=== PATIENT | female | born 1965 | race American Indian/Alaskan Native ===

== ENCOUNTER 2016-11-28 11:00 | Emergency (ER) | payer MEDICAID ==
[2016-11-28] MEDS ORDERED: HYDROmorphone 0.5 MG/0.5 ML Syringe IM ONE (13:09)
[2016-11-28] MEDS ORDERED: HYDROmorphone 0.5 MG/0.5 ML Syringe ONE (13:13)
[2016-11-28 14:08] VITALS: BP 116/72
--- NOTE | 2016-11-28 14:39 | EDM.PDOC ---
ED HPI GENERAL MEDICAL PROBLEM - General Chief Complaint: Neurological Problem Stated Complaint: MEDICAL [facility] Time Seen by Provider: 11/28/16 11:36 Source of Information: Reports: Patient History Limitations: Reports: No Limitations - History of Present Illness INITIAL COMMENTS - FREE TEXT/NARRATIVE: History of present illness: [This is a 51 of female that had a 5 minute general tonic-clonic seizures this morning. She had one seizure in the past that they thought was related to tramadol. She's never been formally diagnosed with a seizure disorder. Her witnessed this event. She slumped over a laundry basket and then fell to the floor and convulsive for about 5 minutes. She bit her tongue and was bleeding out of her mouth. She presents by ambulance alert and oriented and appears to have gone beyond the postictal period. ] Review of systems: As per history of present illness and below otherwise all systems reviewed and negative. Past medical history: As per history of present illness and as reviewed below otherwise noncontributory. Surgical history: As per history of present illness and as reviewed below otherwise noncontributory. Social history: No reported history of drug or alcohol abuse. Family history: As per history of present illness and as reviewed below otherwise noncontributory. Physical exam: HEENT: Atraumatic, normocephalic, pupils reactive, negative for conjunctival pallor or scleral icterus, mucous membranes moist, she has a bite giovanny on the left side of her tongue. throat clear, neck supple, nontender, trachea midline. Lungs: Clear to auscultation, breath sounds equal bilaterally, chest nontender. Heart: S1S2, regular, negative for clicks, rubs, or JVD. Abdomen: Soft, nondistended, nontender. Negative for masses or hepatosplenomegaly. Negative for costovertebral tenderness. Pelvis: Stable nontender. Genitourinary: Deferred. Rectal: Deferred. Extremities: Atraumatic, negative for cords or calf pain. Neurovascular unremarkable. Neuro: Awake, alert, oriented. Cranial nerves II through XII unremarkable. Cerebellum unremarkable. Motor and sensory unremarkable throughout. Exam nonfocal. Diagnostics: [Head CT is negative labs are unremarkable.] Therapeutics: [] Impression: [Seizure] Plan: [In reviewing her medications she is on 3 medications that could cause seizures. These are Wellbutrin Cymbalta and duloxetine. I'm recommending she followup with the nurse practitioner that prescribes these or her primary care doctor and discuss with them whether or not she needs these medications and whether or not they think that that could have caused her to have a seizure. It could be that this would be difficult for them to determine and that a neuro consult would be in order. Either these medications caused this seizure or she has an underlying epileptic disorder.] Definitive disposition and diagnosis as appropriate pending reevaluation and review of above. - Related Data Allergies Allergy/AdvReac Type Severity Reaction Status Date / Time codeine Allergy Unknown Hallucinati Verified 04/30/16 08:08 ons Home Meds: Home Meds Omeprazole 20 mg PO DAILY 03/21/13 [History] Ferrous Sulfate [Iron] 325 mg PO DAILY 02/06/15 [History] Folic Acid 1 mg PO DAILY 02/06/15 [History] ARIPiprazole [Abilify] 30 mg PO DAILY 05/31/15 [History] Amitriptyline [Elavil] 200 mg PO BEDTIME 05/31/15 [History] DULoxetine [Cymbalta] 120 mg PO DAILY 05/31/15 [History] Lisinopril/Hydrochlorothiazide [Lisinopril-Hctz 10-12.5 mg Tab] 1 tab PO DAILY 04/30/16 [History] Potassium Chloride 20 meq PO DAILY 04/30/16 [History] buPROPion [Wellbutrin XL] 450 mg PO DAILY 04/30/16 [History] Fluticasone/Salmeterol [Advair 250-50 Diskus] 1 puff INH BID 11/28/16 [History] Past Medical History 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: Reports: Hypertension 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 Musculoskeletal History: scoliosis Other Neuro History: had seizure from tramadol Psychiatric History: Reports: Anxiety, Depression Hematologic History: Reports: Anemia - Infectious Disease History Infectious Disease History: Reports: Chicken Pox - Past Surgical History Female Surgical History: Reports: Section Other Neurological Surgeries/Procedures: may 20 2015 lumbar spinal fussion and decompression Musculoskeletal Surgical History: Reports: Other (See Below) Social & Family History - Tobacco Use Smoking Status *Q: Never Smoker Second Hand Smoke Exposure: No - Caffeine Use Caffeine Use: Reports: Coffee, Soda - Recreational Drug Use Recreational Drug Use: No ED ROS GENERAL - Review of Systems Review Of Systems: ROS reveals no pertinent complaints other than HPI. - Physical Exam Exam: See Below Course - Vital Signs Last Recorded V/S: Last Vital Signs Temp 36.3 C 11/28/16 14:07 Pulse 126 H 11/28/16 14:07 Resp 19 11/28/16 14:07 BP 116/72 11/28/16 14:07 Pulse Ox 91 L 11/28/16 14:07 - Orders/Labs/Meds Orders: Active Orders 24 hr Category Date Time Status Chest 1V Frontal [CR] Stat Exams 11/28/16 11:58 Taken Head wo Cont [CT] Stat Exams 11/28/16 11:41 Taken Labs: Laboratory Tests 11/28/16 11/28/16 11/28/16 Range/Units 12:22 12:22 14:11 WBC 13.3 H (4.5-11.0) K/uL RBC 5.47 (3.30-5.50) M/uL Hgb 13.7 (12.0-15.0) g/dL Hct 41.8 (36.0-48.0) % MCV 76 L (80-98) fL MCH 25 L (27-31) pg MCHC 33 (32-36) % Plt Count 305 (150-400) K/uL Neut % (Auto) 81 H (36-66) % Lymph % (Auto) 11 L (24-44) % [place] % (Auto) 5 (2-6) % Eos % (Auto) 3 (2-4) % Baso % (Auto) 0 (0-1) % Sodium 136 L (140-148) mmol/L Potassium 3.4 L (3.6-5.2) mmol/L Chloride 100 (100-108) mmol/L Carbon Dioxide 27 (21-32) mmol/L Anion Gap 12.4 (5.0-14.0) mmol/L BUN 11 (7-18) mg/dL Creatinine 0.9 (0.6-1.0) mg/dL Est Cr Clr Drug Dosing 54.31 mL/min Estimated GFR (MDRD) > 60 (>60) Glucose 118 H (74-106) mg/dL Calcium 8.3 L (8.5-10.1) mg/dL Total Bilirubin 0.2 (0.2-1.0) mg/dL AST 17 (15-37) U/L ALT 29 (12-78) U/L Alkaline Phosphatase 101 (46-116) U/L Total Protein 6.8 (6.4-8.2) g/dL Albumin 3.2 L (3.4-5.0) g/dL Globulin 3.6 H (2.3-3.5) g/dL Albumin/Globulin Ratio 0.9 L (1.2-2.2) TSH, Ultra Sensitive 2.863 (0.358-3.740) uIU/mL Urine Color Yellow Urine Appearance Clear Urine pH 6.0 (4.5-8.0) Ur Specific [place] 1.010 (1.008-1.030) Urine Protein Negative (NEGATIVE) mg/dL Urine Glucose (UA) Normal (NEGATIVE) mg/dL Urine Ketones Negative (NEGATIVE) mg/dL Urine Occult Blood Negative (NEGATIVE) Urine Nitrite Negative (NEGATIVE) Urine Bilirubin Negative (NEGATIVE) Urine Urobilinogen Normal (NORMAL) mg/dL Ur Leukocyte Esterase Negative (NEGATIVE) Urine RBC Not seen (0-5) Urine WBC 0-5 (0-5) Ur Epithelial Cells Rare Amorphous Sediment Few Urine Bacteria Moderate Urine Mucus Rare Urine Opiates Screen (NEGATIVE) Ur Oxycodone Screen (NEGATIVE) Urine Methadone Screen (NEGATIVE) Ur Propoxyphene Screen (NEGATIVE) Ur Barbiturates Screen (NEGATIVE) Ur Tricyclics Screen (NEGATIVE) Ur Phencyclidine Scrn (NEGATIVE) Ur Amphetamine Screen (NEGATIVE) U Methamphetamines Scrn (NEGATIVE) Urine MDMA Screen (NEGATIVE) U Benzodiazepines Scrn (NEGATIVE) U Cocaine Metab Screen (NEGATIVE) U Marijuana (THC) Screen (NEGATIVE) 11/28/16 Range/Units 14:11 WBC (4.5-11.0) K/uL RBC (3.30-5.50) M/uL Hgb (12.0-15.0) g/dL Hct (36.0-48.0) % MCV (80-98) fL MCH (27-31) pg MCHC (32-36) % Plt Count (150-400) K/uL Neut % (Auto) (36-66) % Lymph % (Auto) (24-44) % [place] % (Auto) (2-6) % Eos % (Auto) (2-4) % Baso % (Auto) (0-1) % Sodium (140-148) mmol/L Potassium (3.6-5.2) mmol/L Chloride (100-108) mmol/L Carbon Dioxide (21-32) mmol/L Anion Gap (5.0-14.0) mmol/L BUN (7-18) mg/dL Creatinine (0.6-1.0) mg/dL Est Cr Clr Drug Dosing mL/min Estimated GFR (MDRD) (>60) Glucose (74-106) mg/dL Calcium (8.5-10.1) mg/dL Total Bilirubin (0.2-1.0) mg/dL AST (15-37) U/L ALT (12-78) U/L Alkaline Phosphatase (46-116) U/L Total Protein (6.4-8.2) g/dL Albumin (3.4-5.0) g/dL Globulin (2.3-3.5) g/dL Albumin/Globulin Ratio (1.2-2.2) TSH, Ultra Sensitive (0.358-3.740) uIU/mL Urine Color Urine Appearance Urine pH (4.5-8.0) Ur Specific [place] (1.008-1.030) Urine Protein (NEGATIVE) mg/dL Urine Glucose (UA) (NEGATIVE) mg/dL Urine Ketones (NEGATIVE) mg/dL Urine Occult Blood (NEGATIVE) Urine Nitrite (NEGATIVE) Urine Bilirubin (NEGATIVE) Urine Urobilinogen (NORMAL) mg/dL Ur Leukocyte Esterase (NEGATIVE) Urine RBC (0-5) Urine WBC (0-5) Ur Epithelial Cells Amorphous Sediment Urine Bacteria Urine Mucus Urine Opiates Screen Negative (NEGATIVE) Ur Oxycodone Screen Negative (NEGATIVE) Urine Methadone Screen Negative (NEGATIVE) Ur Propoxyphene Screen Negative (NEGATIVE) Ur Barbiturates Screen Negative (NEGATIVE) Ur Tricyclics Screen Positive H (NEGATIVE) Ur Phencyclidine Scrn Negative (NEGATIVE) Ur Amphetamine Screen Negative (NEGATIVE) U Methamphetamines Scrn Negative (NEGATIVE) Urine MDMA Screen Negative (NEGATIVE) U Benzodiazepines Scrn Positive H (NEGATIVE) U Cocaine Metab Screen Negative (NEGATIVE) U Marijuana (THC) Screen Negative (NEGATIVE) Meds: Medications Discontinued Medications Generic Name Dose Route Start Last Admin Trade Name Freq PRN Reason Stop Dose Admin Hydromorphone HCl 0.5 mg 11/28/16 13:09 11/28/16 13:15 Dilaudid IM 11/28/16 13:10 0.5 mg ONETIME ONE Administration Hydromorphone HCl Confirm 11/28/16 13:13 Dilaudid Administered 11/28/16 13:14 Dose 0.5 mg .ROUTE .STK-MED ONE Departure - Departure Time of Disposition: 14:39 Disposition: Home, Self-Care 01 Clinical Impression: Seizure - Discharge Information Forms: ED Department Discharge Additional Instructions: Please followup with either your primary care doctor or the nurse practitioner that prescribes the medications we discussed. Once again by review it is likely you either have an underlying seizure disorder or that the medications that we discussed somehow caused you to have a seizure. This may be difficult for doctors to figure out to determine but followup with your primary care doctor or nurse practitioner in May can assist you in trying to determine what steps to take to try to minimize the risk of you having another seizure. You may need to have an EEG and see a neurologist. - My Orders Last 24 Hours: My Active Orders 11/28/16 11:41 Head wo Cont [CT] Stat 11/28/16 11:58 Chest 1V Frontal [CR] Stat - Assessment/Plan Last 24 Hours: My Active Orders 11/28/16 11:41 Head wo Cont [CT] Stat 11/28/16 11:58 Chest 1V Frontal [CR] Stat
--- NOTE | 2016-11-30 08:57 | CR ---
Low lung volumes. Mild cardiomegaly. No focal consolidation.
== END 2016-11-28 15:18 | disposition home or self-care (01) ==
LOC: JP.ED 11:00
DX: R56.9 Unspecified convulsions (principal); I10 Essential (primary) hypertension; F41.9 Anxiety disorder, unspecified; F32.9 Major depressive disorder, single episode, unspecified; Z79.899 Other long term (current) drug therapy; Z88.5 Allergy status to narcotic agent; Z98.1 Arthrodesis status; Z98.890 Other specified postprocedural states
CPT/HCPCS: 36415; 70450; 71010; 80053; 80305; 81001; 84443; 85025; 96372; 99285; J1170

== ENCOUNTER 2017-09-02 16:46 | Emergency (ER) | payer MEDICAID ==
[2017-09-02 17:32] VITALS: BP 139/95
[2017-09-02] MEDS ORDERED: Ondansetron 4 MG Tab.DIS PO ONE (18:08)
[2017-09-02] MEDS ORDERED: HYDROmorphone 1 MG/ML Syringe IM ONE (18:08)
--- NOTE | 2017-09-02 18:14 | EDM.PDOC ---
ED HPI GENERAL MEDICAL PROBLEM - General Chief Complaint: General Stated Complaint: FELL ON ICE HURT TAILBONE AND HEAD Time Seen by Provider: 09/02/17 18:01 Source of Information: Reports: Patient, Family, RN Notes Reviewed History Limitations: Reports: No Limitations - History of Present Illness INITIAL COMMENTS - FREE TEXT/NARRATIVE: 52-year-old female presents emergency department today following a fall on the ice, she fell on the ice about 2 hours ago slipped landed on her tailbone and then fell and hit the back of her head. She did not lose consciousness no vomiting she does feel nauseated is having a headache neck stiffness back stiffness she does have an extensive back surgery - Related Data Allergies Allergy/AdvReac Type Severity Reaction Status Date / Time codeine AdvReac Unknown Hallucinati Verified 11/29/16 08:03 ons Home Meds: Home Meds Omeprazole 20 mg PO DAILY 03/21/13 [History] Ferrous Sulfate [Iron] 325 mg PO DAILY 02/06/15 [History] Folic Acid 1 mg PO DAILY 02/06/15 [History] ARIPiprazole [Abilify] 30 mg PO DAILY 05/31/15 [History] Amitriptyline [Elavil] 200 mg PO BEDTIME 05/31/15 [History] DULoxetine [Cymbalta] 120 mg PO DAILY 05/31/15 [History] Lisinopril/Hydrochlorothiazide [Lisinopril-Hctz 10-12.5 mg Tab] 1 tab PO DAILY 04/30/16 [History] Potassium Chloride 20 meq PO DAILY 04/30/16 [History] buPROPion [Wellbutrin XL] 450 mg PO DAILY 04/30/16 [History] Fluticasone/Salmeterol [Advair 250-50 Diskus] 1 puff INH BID 11/28/16 [History] Past Medical History 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: Reports: Hypertension Respiratory History: Reports: Asthma 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 History: Reports: GERD 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 Musculoskeletal History: scoliosis Neurological History: Reports: Seizure Other Neuro History: had seizure from tramadol Psychiatric History: Reports: Anxiety, Depression Hematologic History: Reports: Anemia - Infectious Disease History Infectious Disease History: Reports: Chicken Pox - Past Surgical History GI Surgical History: Reports: Cholecystectomy Female Surgical History: Reports: Section, Hysterectomy Other Neurological Surgeries/Procedures: nov 17 2015 lumbar spinal fussion and decompression Musculoskeletal Surgical History: Reports: Other (See Below) Other Musculoskeletal Surgeries/Procedures:: torito in spine with screws and plates Social & Family History - Tobacco Use Smoking Status *Q: Former Smoker Years of Tobacco use: 5 Packs/Tins Daily: 0.5 Used Tobacco, but Quit: Yes Month Tobacco Last Used: Second Hand Smoke Exposure: No - Caffeine Use Caffeine Use: Reports: Coffee - Recreational Drug Use Recreational Drug Use: No ED ROS GENERAL - Review of Systems Review Of Systems: See Below Constitutional: Reports: No Symptoms HEENT: Reports: No Symptoms Respiratory: Reports: No Symptoms Cardiovascular: Reports: No Symptoms GI/Abdominal: Reports: No Symptoms : Reports: No Symptoms Musculoskeletal: Reports: No Symptoms Skin: Reports: No Symptoms Neurological: Reports: Headache Psychiatric: Reports: No Symptoms ED EXAM, GENERAL - Physical Exam Exam: See Below Exam Limited By: No Limitations General Appearance: Alert, WD/WN, No Apparent Distress Eye Exam: Bilateral Eye: EOMI, Normal Inspection Ears: Normal External Exam, Normal Canal, Hearing Grossly Normal, Normal TMs Nose: Normal Inspection, Normal Mucosa, No Blood Throat/Mouth: Normal Inspection, Normal Lips, Normal Teeth, Normal Gums, Normal Oropharynx, Normal Voice, No Airway Compromise Head: Atraumatic, Normocephalic Neck: Normal Inspection, Supple, Non-Tender, Full Range of Motion Respiratory/Chest: No Respiratory Distress, Lungs Clear, Normal Breath Sounds, No Accessory Muscle Use Cardiovascular: Regular Rate, Rhythm, No Murmur Back Exam: Normal Inspection, Full Range of Motion, Other (No tenderness to palpation coccyx area). No: CVA Tenderness (R), CVA Tenderness (L) Extremities: Normal Inspection Neurological: Alert, Oriented, CN II-XII Intact, Normal Cognition, Normal Gait, No Motor/Sensory Deficits, Slow to Respond. No: Disoriented, Abnormal Gait Course - Vital Signs Last Recorded V/S: Last Vital Signs Temp 96.6 F 09/02/17 17:58 Pulse 110 H 09/02/17 17:58 Resp 16 09/02/17 17:58 BP 139/95 H 09/02/17 17:58 Pulse Ox 96 09/02/17 17:58 - Orders/Labs/Meds Meds: Medications Discontinued Medications Generic Name Dose Route Start Last Admin Trade Name Freq PRN Reason Stop Dose Admin Hydromorphone HCl 1 mg 09/02/17 18:08 09/02/17 18:28 Dilaudid IM 09/02/17 18:09 1 mg ONETIME ONE Administration Ondansetron HCl 4 mg 09/02/17 18:08 09/02/17 18:28 Zofran Odt PO 09/02/17 18:09 4 mg ONETIME ONE Administration Departure - Departure Time of Disposition: 19:33 Disposition: Home, Self-Care 01 Condition: Good Clinical Impression: Head injury Qualifiers: Encounter type: initial encounter Qualified Code(s): S09.90XA - Unspecified injury of head, initial encounter - Discharge Information Referrals: Denisse Vogt PA [Primary Care Provider] - Forms: ED Department Discharge Additional Instructions: Use ibuprofen for baseline pain control, use hydrocodone for breakthrough pain, Please followup with your primary care provider in 3-5 days if not better, please call return to the emergency department with worsening of symptoms. - Assessment/Plan Plan: Assessment Acuity = acute Site and laterality = head injury with concern for concussion development Etiology = secondary to fall Manifestations = headache Location of injury = Home Lab values = none Plan She is provided Zofran 4 mg ODT in combination with 1 mg Dilaudid IM with good relief she'll be discharged home with hydrocodone 5/325 one tab by mouth every 3 -4 hours total #6, follow-up primary care 3-5 days if not better This note was dictated using [employer] voice recognition software please call with any questions on syntax or dru.
== END 2017-09-02 19:44 | disposition home or self-care (01) ==
LOC: JP.ED 16:46
DX: S09.90XA Unspecified injury of head, initial encounter (principal); I10 Essential (primary) hypertension; Z88.5 Allergy status to narcotic agent; Z79.899 Other long term (current) drug therapy; Z87.891 Personal history of nicotine dependence; W00.9XXA Unspecified fall due to ice and snow, initial encounter
CPT/HCPCS: 96372; 99284; A9270; J1170

== ENCOUNTER 2017-12-07 14:47 | Emergency (ER) | payer MEDICAID ==
[2017-12-07 15:05] VITALS: BP 157/92
[2017-12-07] MEDS ORDERED: Cephalexin 250 MG Cap PO ONE (15:28)
--- NOTE | 2017-12-07 15:38 | EDM.PDOC ---
ED HPI GENERAL MEDICAL PROBLEM - General Chief Complaint: Genitourinary Problem Stated Complaint: BLADDER PAIN Time Seen by Provider: 12/07/17 15:15 Source of Information: Reports: Patient, Old Records, RN History Limitations: Reports: No Limitations - History of Present Illness INITIAL COMMENTS - FREE TEXT/NARRATIVE: 52 yo female presents with several days of dysuria and bladder spasms. No flank pain, nausea, or fever. Thinks her normal HR is up to 100/min. Has an appt to see her primary tomorrow. Onset: Gradual Onset Date: 12/02/17 Duration: Day(s): (6), Getting Worse Location: Reports: Pelvis (urethra) Quality: Reports: Burning, Other (bladder spasms) Severity: Moderate Improves with: Reports: None Worsens with: Reports: Other (time) Context: Reports: Other (unknown) Associated Symptoms: Reports: No Other Symptoms. 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) Bladder Pain Score (Numeric/FACES): 9 - Related Data Allergies Allergy/AdvReac Type Severity Reaction Status Date / Time codeine AdvReac Unknown Hallucinati Verified 12/07/17 15:15 ons Home Meds: Home Meds Omeprazole 20 mg PO DAILY 03/21/13 [History] Ferrous Sulfate [Iron] 325 mg PO DAILY 02/06/15 [History] Folic Acid 1 mg PO DAILY 02/06/15 [History] ARIPiprazole [Abilify] 30 mg PO DAILY 05/31/15 [History] Amitriptyline [Elavil] 200 mg PO BEDTIME 05/31/15 [History] DULoxetine [Cymbalta] 120 mg PO DAILY 05/31/15 [History] Lisinopril/Hydrochlorothiazide [Lisinopril-Hctz 10-12.5 mg Tab] 1 tab PO DAILY 04/30/16 [History] Potassium Chloride 20 meq PO DAILY 04/30/16 [History] buPROPion [Wellbutrin XL] 450 mg PO DAILY 04/30/16 [History] Fluticasone/Salmeterol [Advair 250-50 Diskus] 1 puff INH BID 11/28/16 [History] Cephalexin [Keflex] 500 mg PO TID #20 capsule 06/06/18 [Rx] Past Medical History 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: Reports: Hypertension Respiratory History: Reports: Asthma 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 History: Reports: Cholelithiasis, GERD 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 Musculoskeletal History: scoliosis Neurological History: Reports: Seizure Other Neuro History: had seizure from tramadol Psychiatric History: Reports: Anxiety, Depression Hematologic History: Reports: Anemia - Infectious Disease History Infectious Disease History: Reports: Chicken Pox - Past Surgical History GI Surgical History: Reports: Cholecystectomy Female Surgical History: Reports: Section, Hysterectomy Other Neurological Surgeries/Procedures: may 20 2015 lumbar spinal fussion and decompression Musculoskeletal Surgical History: Reports: Other (See Below) Other Musculoskeletal Surgeries/Procedures:: torito in spine with screws and plates Social & Family History - Tobacco Use Smoking Status *Q: Former Smoker Used Tobacco, but Quit: Yes Month/Year Tobacco Last Used: 32 years ago - Caffeine Use Caffeine Use: Reports: Coffee - Recreational Drug Use Recreational Drug Use: No ED ROS GENERAL - Review of Systems Review Of Systems: See Below Constitutional: Reports: No Symptoms HEENT: Reports: No Symptoms Respiratory: Reports: No Symptoms Cardiovascular: Reports: No Symptoms. Denies: Lightheadedness (not dizzy with standing) GI/Abdominal: Reports: No Symptoms : Reports: Dysuria, Pain (bladder spasms) Musculoskeletal: Reports: No Symptoms Skin: Reports: No Symptoms Neurological: Reports: No Symptoms ED EXAM, RENAL/ - Physical Exam Exam: See Below Exam Limited By: No Limitations General Appearance: Alert, WD/WN, No Apparent Distress, Obese Eye Exam: Bilateral Eye: Normal Inspection Ears: Normal External Exam, Hearing Grossly Normal Nose: Normal Inspection, Normal Mucosa, No Blood Throat/Mouth: Normal Inspection, Normal Lips, Normal Oropharynx, Normal Voice, No Airway Compromise Head: Atraumatic, Normocephalic Neck: Normal Inspection Respiratory/Chest: No Respiratory Distress, Lungs Clear, Normal Breath Sounds, No Accessory Muscle Use Cardiovascular: Regular Rate, Rhythm, No Edema, Tachycardia (mildly) GI/Abdominal: Non-Tender Back Exam: Normal Inspection. No: CVA Tenderness (R), CVA Tenderness (L) Extremities: Normal Inspection, Normal Range of Motion, Non-Tender, No Pedal Edema Neurological: Alert, Oriented, CN II-XII Intact, Normal Cognition, No Motor/ Sensory Deficits Psychiatric: Normal Affect, Normal Mood Skin Exam: Warm, Dry, Intact, Normal Color, No Rash Lymphatic: No Adenopathy Course - Vital Signs Last Recorded V/S: Last Vital Signs Temp 36.6 C 12/07/17 15:09 Pulse 117 H 12/07/17 15:09 Resp 16 12/07/17 15:09 BP 157/92 H 12/07/17 15:09 Pulse Ox 93 L 12/07/17 15:09 - Orders/Labs/Meds Orders: Active Orders 24 hr Category Date Time Status CULTURE URINE [RM] Stat Lab 12/07/17 15:00 Received UA W/MICROSCOPIC [URIN] Stat Lab 12/07/17 15:05 Ordered Labs: Laboratory Tests 12/07/17 Range/Units 15:05 Urine Color Yellow Urine Appearance Cloudy Urine pH 7.0 (4.5-8.0) Ur Specific [place] 1.005 L (1.008-1.030) Urine Protein 30 H (NEGATIVE) mg/dL Urine Glucose (UA) Normal (NEGATIVE) mg/dL Urine Ketones Negative (NEGATIVE) mg/dL Urine Occult Blood Moderate (NEGATIVE) Urine Nitrite Negative (NEGATIVE) Urine Bilirubin Negative (NEGATIVE) Urine Urobilinogen Normal (NORMAL) mg/dL Ur Leukocyte Esterase Large (NEGATIVE) Urine RBC 5-10 H (0-5) Urine WBC Packed H (0-5) Ur Epithelial Cells Few Amorphous Sediment Not seen Urine Bacteria Not seen Urine Mucus Not seen Meds: Medications Discontinued Medications Generic Name Dose Route Start Last Admin Trade Name Hansq PRN Reason Stop Dose Admin Cephalexin 500 mg 12/07/17 15:28 Keflex PO 12/07/17 15:29 ONETIME ONE Departure - Departure Time of Disposition: 15:37 Disposition: Home, Self-Care 01 Condition: Good Clinical Impression: Cystitis - Discharge Information Prescriptions: Cephalexin [Keflex] 500 mg PO TID #20 capsule Referrals: Denisse Vogt PA [Primary Care Provider] - Forms: ED Department Discharge Additional Instructions: Take cephalexin as directed until gone or your doctor changes it. See your doctor Tuesday afternoon instead of tomorrow if possible. Take AZO for your discomfort as needed. Drink ample fluids. Return if a fever occurs. - My Orders Last 24 Hours: My Active Orders 12/07/17 15:00 CULTURE URINE [RM] Stat 12/07/17 15:05 UA W/MICROSCOPIC [URIN] Stat - Assessment/Plan Last 24 Hours: My Active Orders 12/07/17 15:00 CULTURE URINE [RM] Stat 12/07/17 15:05 UA W/MICROSCOPIC [URIN] Stat
== END 2017-12-07 15:41 | disposition home or self-care (01) ==
LOC: JP.ED 14:47
DX: N30.90 Cystitis, unspecified without hematuria (principal); Z88.5 Allergy status to narcotic agent; Z79.899 Other long term (current) drug therapy; Z87.891 Personal history of nicotine dependence
CPT/HCPCS: 81001; 87086; 87088; 87186; 99284; A9270

== ENCOUNTER 2017-12-14 13:55 | Emergency (ER) | payer MEDICAID ==
[2017-12-14 14:13] VITALS: BP 127/75
[2017-12-14] MEDS: fentaNYL 100 MCG/2 ML SDV IM ONE (14:23)
--- NOTE | 2017-12-14 14:23 | EDM.PDOC ---
ED HPI GENERAL MEDICAL PROBLEM - General Chief Complaint: General Stated Complaint: FELL AT HOME, SCRAPED HER FACE Time Seen by Provider: 12/14/17 14:16 Source of Information: Reports: Patient, Family, RN Notes Reviewed History Limitations: Reports: No Limitations - History of Present Illness INITIAL COMMENTS - FREE TEXT/NARRATIVE: 52-year-old female presents to the emergency department today following a fall at home, she tripped over a board fell in the garage landed predominantly on her left knee then down to her elbows followed by her forehead on the concrete floor. There was no loss of consciousness she has no nausea vomiting she is complaining of left knee pain she does have abrasions over both knees both elbows and does have a developing hematoma on her forehead - Related Data Allergies Allergy/AdvReac Type Severity Reaction Status Date / Time codeine AdvReac Unknown Hallucinati Verified 12/07/17 15:15 ons Home Meds: Home Meds Omeprazole 20 mg PO DAILY 03/21/13 [History] Ferrous Sulfate [Iron] 325 mg PO DAILY 02/06/15 [History] Folic Acid 1 mg PO DAILY 02/06/15 [History] ARIPiprazole [Abilify] 30 mg PO DAILY 05/31/15 [History] Amitriptyline [Elavil] 200 mg PO BEDTIME 05/31/15 [History] DULoxetine [Cymbalta] 120 mg PO DAILY 05/31/15 [History] Lisinopril/Hydrochlorothiazide [Lisinopril-Hctz 10-12.5 mg Tab] 1 tab PO DAILY 04/30/16 [History] Potassium Chloride 20 meq PO DAILY 04/30/16 [History] buPROPion [Wellbutrin XL] 450 mg PO DAILY 04/30/16 [History] Fluticasone/Salmeterol [Advair 250-50 Diskus] 1 puff INH BID 11/28/16 [History] Cephalexin [Keflex] 500 mg PO TID #20 capsule 12/07/17 [Rx] LORazepam 1 mg PO BID PRN 12/14/17 [History] Past Medical History HEENT History: Reports: Impaired Vision 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: Reports: Hypertension Respiratory History: Reports: Asthma 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 History: Reports: Cholelithiasis, GERD 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 Musculoskeletal History: scoliosis Neurological History: Reports: Seizure Other Neuro History: had seizure from tramadol Psychiatric History: Reports: Anxiety, Depression Hematologic History: Reports: Anemia - Infectious Disease History Infectious Disease History: Reports: Chicken Pox - Past Surgical History GI Surgical History: Reports: Cholecystectomy Female Surgical History: Reports: Section, Hysterectomy Other Neurological Surgeries/Procedures: may 20 2015 lumbar spinal fussion and decompression Musculoskeletal Surgical History: Reports: Other (See Below) Other Musculoskeletal Surgeries/Procedures:: tortio in spine with screws and plates Social & Family History - Tobacco Use Smoking Status *Q: Never Smoker - Caffeine Use Caffeine Use: Reports: Coffee - Recreational Drug Use Recreational Drug Use: No ED ROS GENERAL - Review of Systems Review Of Systems: See Below Constitutional: Reports: No Symptoms HEENT: Reports: No Symptoms Respiratory: Reports: No Symptoms Cardiovascular: Reports: No Symptoms GI/Abdominal: Reports: No Symptoms : Reports: No Symptoms Musculoskeletal: Reports: Joint Pain (Knee pain) Skin: Reports: Bruising, Wound Neurological: Reports: No Symptoms ED EXAM, GENERAL - Physical Exam Exam: See Below Free Text/Narrative:: General: Female, not in any distress, alert and oriented x3 HEENT: head is small hematoma appreciated over the frontal scalp area for left side normocephalic, eyes pupils equal round reactive to light, sclera clear no conjunctivitis appreciated, extraocular eye movements intact. Ears tympanic membranes clear and negron landmarks and light reflex are present bilaterally canals are clear. Nose no septal deviation, nares are clear, no blood present. Mouth mucosa is moist and pink no erythema or exudate noted in soft palate, tongue is midline uvula is midline, dentition is intact. Neck: Supple no thyromegaly no tracheal deviation. Nodes: Cervical nodes subclavicular nodes nontender no palpable lymphadenopathy noted. Lungs: clear to auscultation bilaterally with symmetrical respirations, no adventitious noise appreciated. CV: Regular rate and rhythm S1 and S2 appreciated no murmurs rubs or gallops noted. Abdomen: Soft, nontender, no palpable masses or organomegaly appreciated, no distention no guarding bowel sounds are present, . Neuro: Cranial nerves II through XII grossly intact Skin: Superficial bruising appreciated over both knees with abrasions as well as both forearms Extremities: Examination the right knee I do appreciate some edema on the medial aspect she is tender to the touch with movement of the patella, no significant tenderness noted on the right knee no tenderness at both elbows bilaterally Course - Vital Signs Last Recorded V/S: Last Vital Signs Temp 97.2 F 12/14/17 14:11 Pulse 87 12/14/17 14:11 Resp 16 12/14/17 14:11 BP 127/75 12/14/17 14:11 Pulse Ox 94 L 12/14/17 14:11 - Orders/Labs/Meds Meds: Medications Discontinued Medications Generic Name Dose Route Start Last Admin Trade Name Mary Kay PRN Reason Stop Dose Admin Fentanyl 50 mcg 12/14/17 14:19 12/14/17 14:23 Sublimaze IM 12/14/17 14:20 50 mcg ONETIME ONE Administration Departure - Departure Time of Disposition: 15:13 Disposition: Home, Self-Care 01 Condition: Good Clinical Impression: Contusion of left knee Qualifiers: Encounter type: initial encounter Qualified Code(s): S80.02XA - Contusion of left knee, initial encounter - Discharge Information Referrals: Denisse Vogt PA [Primary Care Provider] - Forms: ED Department Discharge Additional Instructions: Use ibuprofen for baseline pain control, use hydrocodone for breakthrough pain, continue to use crutches and Benigno wrap as needed for comfort, Please followup with your primary care provider in 3-5 days if not better, please call return to the emergency department with worsening of symptoms. - Assessment/Plan Plan: Assessment Acuity = acute Site and laterality = left knee contusion Etiology = secondary to a fall Manifestations = pain Location of injury = Home Lab values = plain film of the knee reveals no fracture, Plan Revealed some relief from the Toradol injection, prescription written for hydrocodone 5/325 one tab by mouth every 6 hours when necessary total #4, an Benigno wrap was used as well as crutches tetanus was updated today This note was dictated using [employer] voice recognition software please call with any questions on syntax or grammar.
--- NOTE | 2017-12-14 15:04 | CR ---
Knee 3V Lt CLINICAL HISTORY: Fall, pain FINDINGS: No acute fracture or dislocation is noted. There are no osseous lesions. Articular surfaces are smooth. There is mild prominence to the intracondylar eminence. There is slight lateral position ing of the patella on the sunrise view. Impression: No fracture Slightly lateral position of the patella on the sunrise view. This may represent some laxity of the m edial patellar retinaculum. Unknown age
[2017-12-14] MEDS: Diphtheria,Pertussis(Acell),Tetanus Vaccine 0.5 ML SDV IM ONE (15:17)
== END 2017-12-14 15:31 | disposition home or self-care (01) ==
LOC: JP.ED 13:55
DX: S80.02XA Contusion of left knee, initial encounter (principal); I10 Essential (primary) hypertension; F41.9 Anxiety disorder, unspecified; F32.9 Major depressive disorder, single episode, unspecified; D64.9 Anemia, unspecified; J45.909 Unspecified asthma, uncomplicated; Z88.5 Allergy status to narcotic agent; Z79.899 Other long term (current) drug therapy; W01.198A Fall on same level from slipping, tripping and stumbling with subsequent striking against other object, initial encounter; Y92.59 Other trade areas as the place of occurrence of the external cause
CPT/HCPCS: 73562; 90715; 99284; J3010

== ENCOUNTER 2018-01-04 11:49 | Emergency (ER) | payer MEDICAID ==
[2018-01-04 12:49] VITALS: BP 132/79
[2018-01-04] MEDS ORDERED: Acetaminophen/HYDROcodone 325-5 MG Tab PO ONE (13:33)
--- NOTE | 2018-01-04 13:38 | EDM.PDOC ---
ED HPI GENERAL MEDICAL PROBLEM - General Chief Complaint: Neuro Symptoms/Deficits Stated Complaint: MEDICAL VIA [facility] Time Seen by Provider: 01/04/18 12:10 Source of Information: Reports: Patient History Limitations: Reports: No Limitations - History of Present Illness INITIAL COMMENTS - FREE TEXT/NARRATIVE: Arrived by EMS after an episode at home. said she was fine this am but when he came home from store she was sitting in chair unresponsive. He shook her and she gradually came around. Confused at first but gradually better. Now back to normal. She had SZ 1 year ago but never saw neurologist. Nothing prior. No CP or palp, No drug or etoh. No DM. BS about 130 by ems. Headache Pain Score (Numeric/FACES): 10 - Related Data Allergies Allergy/AdvReac Type Severity Reaction Status Date / Time codeine AdvReac Unknown Hallucinati Verified 12/07/17 15:15 ons Home Meds: Home Meds Omeprazole 20 mg PO DAILY 03/21/13 [History] Ferrous Sulfate [Iron] 325 mg PO DAILY 02/06/15 [History] Folic Acid 1 mg PO DAILY 02/06/15 [History] ARIPiprazole [Abilify] 30 mg PO DAILY 05/31/15 [History] Amitriptyline [Elavil] 200 mg PO BEDTIME 05/31/15 [History] DULoxetine [Cymbalta] 120 mg PO DAILY 05/31/15 [History] Lisinopril/Hydrochlorothiazide [Lisinopril-Hctz 10-12.5 mg Tab] 1 tab PO DAILY 04/30/16 [History] Potassium Chloride 20 meq PO DAILY 04/30/16 [History] buPROPion [Wellbutrin XL] 450 mg PO DAILY 04/30/16 [History] Fluticasone/Salmeterol [Advair 250-50 Diskus] 1 puff INH BID 11/28/16 [History] Cephalexin [Keflex] 500 mg PO TID #20 capsule 12/07/17 [Rx] LORazepam 1 mg PO BID PRN 12/14/17 [History] Past Medical History HEENT History: Reports: Impaired Vision 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: Reports: Hypertension Respiratory History: Reports: Asthma 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 History: Reports: Cholelithiasis, GERD 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 Musculoskeletal History: scoliosis Neurological History: Reports: Seizure Other Neuro History: had seizure from tramadol Psychiatric History: Reports: Anxiety, Depression Hematologic History: Reports: Anemia - Infectious Disease History Infectious Disease History: Reports: Chicken Pox - Past Surgical History GI Surgical History: Reports: Cholecystectomy Female Surgical History: Reports: Section, Hysterectomy Other Neurological Surgeries/Procedures: may 20 2015 lumbar spinal fussion and decompression Musculoskeletal Surgical History: Reports: Other (See Below) Other Musculoskeletal Surgeries/Procedures:: torito in spine with screws and plates Social & Family History - Tobacco Use Smoking Status *Q: Never Smoker - Caffeine Use Caffeine Use: Reports: Coffee, Soda - Recreational Drug Use Recreational Drug Use: No ED ROS GENERAL - Review of Systems Review Of Systems: See Below Constitutional: Reports: No Symptoms HEENT: Reports: No Symptoms Respiratory: Reports: No Symptoms Cardiovascular: Reports: No Symptoms Endocrine: Reports: No Symptoms GI/Abdominal: Reports: No Symptoms : Reports: No Symptoms Musculoskeletal: Reports: No Symptoms Skin: Reports: No Symptoms Neurological: Reports: Headache (frontal. Began after episode.) Psychiatric: Reports: No Symptoms Hematologic/Lymphatic: Reports: No Symptoms ED EXAM, NEURO - Physical Exam Exam: See Below Exam Limited By: No Limitations General Appearance: Alert, WD/WN, No Apparent Distress Eye Exam: Bilateral Eye: EOMI, PERRL Nose: Normal Inspection Throat/Mouth: Normal Inspection Head Exam: Atraumatic Neck: Normal Inspection Respiratory/Chest: Lungs Clear Cardiovascular: Regular Rate, Rhythm GI/Abdominal: Non-Tender Neurological: Alert, Normal Mood/Affect, Normal Dorsiflexion, CN II-XII Intact, Normal Plantar Flexion, Normal Gait, No Motor/Sensory Deficits, Oriented x 3 Extremities: Normal Inspection Psychiatric: Normal Affect Skin Exam: Warm, Dry, Intact Course - Vital Signs Last Recorded V/S: Last Vital Signs Temp 36.5 C 01/04/18 11:52 Pulse 112 H 01/04/18 12:49 Resp 16 01/04/18 12:49 BP 132/79 01/04/18 12:49 Pulse Ox 91 L 01/04/18 12:49 - Orders/Labs/Meds Orders: Active Orders 24 hr Category Date Time Status EKG Documentation Completion [RC] ASDIRECTED Care 01/04/18 12:53 Active Head wo Cont [CT] Stat Exams 01/04/18 12:11 Taken EKG 12 Lead [EK] Urgent Ther 01/04/18 12:53 Ordered Labs: Laboratory Tests 01/04/18 01/04/18 Range/Units 13:01 13:01 WBC 11.9 H (4.5-11.0) K/uL RBC 5.63 H (3.30-5.50) M/uL Hgb 14.0 (12.0-15.0) g/dL Hct 42.4 (36.0-48.0) % MCV 75 L (80-98) fL MCH 25 L (27-31) pg MCHC 33 (32-36) % Plt Count 325 (150-400) K/uL Neut % (Auto) 77 H (36-66) % Lymph % (Auto) 14 L (24-44) % [place] % (Auto) 6 (2-6) % Eos % (Auto) 3 (2-4) % Baso % (Auto) 0 (0-1) % Sodium 140 (140-148) mmol/L Potassium 3.9 (3.6-5.2) mmol/L Chloride 103 (100-108) mmol/L Carbon Dioxide 27 (21-32) mmol/L Anion Gap 10.3 (5.0-14.0) mmol/L BUN 13 (7-18) mg/dL Creatinine 1.0 (0.6-1.0) mg/dL Est Cr Clr Drug Dosing 60.56 mL/min Estimated GFR (MDRD) 59 L (>60) Glucose 104 (74-106) mg/dL Calcium 9.3 (8.5-10.1) mg/dL Total Bilirubin 0.2 (0.2-1.0) mg/dL AST 15 (15-37) U/L ALT 31 (12-78) U/L Alkaline Phosphatase 93 (46-116) U/L Total Protein 7.0 (6.4-8.2) g/dL Albumin 3.3 L (3.4-5.0) g/dL Globulin 3.7 H (2.3-3.5) g/dL Albumin/Globulin Ratio 0.9 L (1.2-2.2) - Re-Assessments/Exams Free Text/Narrative Re-Assessment/Exam: 01/04/18 13:40 Pt up waling to BR and did fine Departure - Departure Time of Disposition: 13:40 Disposition: Home, Self-Care 01 Condition: Fair Clinical Impression: Unresponsive episode - Discharge Information Referrals: PCP,None [Primary Care Provider] - Additional Instructions: It is possible that you had a seizure. Problems such as stroke, heart problems or low blood sugar less likey. Head CT and all labs ok You will need to see your doctor who will decide if you need to see a neurologist of if other tests needed. No driving until you are cleared by your doctor. - My Orders Last 24 Hours: My Active Orders 01/04/18 12:11 Head wo Cont [CT] Stat 01/04/18 12:53 EKG Documentation Completion [RC] ASDIRECTED EKG 12 Lead [EK] Urgent - Assessment/Plan Last 24 Hours: My Active Orders 01/04/18 12:11 Head wo Cont [CT] Stat 01/04/18 12:53 EKG Documentation Completion [RC] ASDIRECTED EKG 12 Lead [EK] Urgent
== END 2018-01-04 13:52 | disposition home or self-care (01) ==
LOC: JP.ED 11:49
DX: R41.82 Altered mental status, unspecified (principal); I10 Essential (primary) hypertension; K21.9 Gastro-esophageal reflux disease without esophagitis; Z79.899 Other long term (current) drug therapy
CPT/HCPCS: 36415; 70450; 80053; 85025; 93005; 99284; A9270

== ENCOUNTER 2020-03-19 16:13 | Emergency (ER) | payer MEDICAID ==
--- NOTE | 2020-03-19 16:58 | EDM.PDOC ---
<Jossie Carrion M - Last Filed: 03/19/20 16:53> ED HPI GENERAL MEDICAL PROBLEM - General Chief Complaint: Chest Pain Stated Complaint: CHEST PAIN,FAST HEART RATE Time Seen by Provider: 03/19/20 16:45 Source of Information: Reports: Patient, RN History Limitations: Reports: No Limitations - History of Present Illness INITIAL COMMENTS - FREE TEXT/NARRATIVE: Pt here with 3+ weeks CP that radiates to L clavicle to L hand/pinky fever. C/O headache 5/10 pain that does not radiate. Pt indicates history of headaches. Does not currently have CP at this time but does have the "tingling" in the L hand/pinky. Pt indicated she is now walking to loose weight and is more SOB over last 3 weeks then normal. Denies fever, chills, night sweats, n/v. Admits to a history of anxiety/depression. Onset: Gradual Onset Date: 02/27/20 Duration: Getting Worse, Waxing/Waning Location: Reports: Chest, Upper Extremity, Left Quality: Reports: Ache, Pressure Severity: Moderate - Related Data Allergies Allergy/AdvReac Type Severity Reaction Status Date / Time latex Allergy Rash Verified 05/18/19 05:09 tramadol Allergy Seizure Verified 05/18/19 05:09 codeine AdvReac Unknown Hallucinati Verified 05/18/19 05:09 ons Home Meds: Home Meds Omeprazole 20 mg PO DAILY 03/21/13 [History] Ferrous Sulfate [Iron] 325 mg PO DAILY 02/06/15 [History] Folic Acid 1 mg PO DAILY 02/06/15 [History] ARIPiprazole [Abilify] 30 mg PO DAILY 05/31/15 [History] Amitriptyline [Elavil] 200 mg PO BEDTIME 05/31/15 [History] DULoxetine [Cymbalta] 120 mg PO DAILY 05/31/15 [History] Lisinopril/Hydrochlorothiazide [Lisinopril-Hctz 10-12.5 mg Tab] 1 tab PO DAILY 04/30/16 [History] Potassium Chloride 20 meq PO DAILY 04/30/16 [History] Fluticasone Propion/Salmeterol [Advair 250-50 Diskus] 1 puff INH BID 11/28/16 [History] LORazepam 1 mg PO BID PRN 12/14/17 [History] Past Medical History HEENT History: Reports: Impaired Vision 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: Reports: Hypertension Respiratory History: Reports: Asthma 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 History: Reports: Cholelithiasis, GERD 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: Musculoskeletal History: Reports: Arthritis, Back Pain, Chronic Other Musculoskeletal History: scoliosis Neurological History: Reports: Seizure Other Neuro History: had seizure from tramadol last seizure January 04, 2018 Psychiatric History: Reports: Anxiety, Depression, Panic Attack, Psych Hospitalization(s), Suicide Attempt, Suicidal Ideation Endocrine/Metabolic History: Reports: Obesity/BMI 30+ Hematologic History: Reports: Anemia, Blood Transfusion(s), Iron Deficiency - Infectious Disease History Infectious Disease History: Reports: Chicken Pox - Past Surgical History Head Surgeries/Procedures: Reports: None HEENT Surgical History: Reports: Adenoidectomy, Tonsillectomy Cardiovascular Surgical History: Reports: None Respiratory Surgical History: Reports: None GI Surgical History: Reports: Cholecystectomy, Colonoscopy Female Surgical History: Reports: Section, Hysterectomy Endocrine Surgical History: Reports: None Other Neurological Surgeries/Procedures: may 20 2015 lumbar spinal fussion and decompression Musculoskeletal Surgical History: Reports: Other (See Below) Other Musculoskeletal Surgeries/Procedures:: torito in spine with screws and plates Dermatological Surgical History: Reports: None Social & Family History - Caffeine Use Caffeine Use: Reports: Coffee ED ROS GENERAL - Review of Systems Review Of Systems: See Below Constitutional: Reports: No Symptoms HEENT: Reports: No Symptoms Respiratory: Reports: Shortness of Breath (On exertion with walking for exercise) Cardiovascular: Reports: Chest Pain, Blood Pressure Problem, Dyspnea on Exertion Endocrine: Reports: No Symptoms GI/Abdominal: Reports: Other (GERD) : Reports: No Symptoms Musculoskeletal: Reports: Shoulder Pain, Hand Pain (L hand and L clavicle ) Skin: Reports: No Symptoms Neurological: Reports: Tingling (L pinky finger ) Psychiatric: Reports: No Symptoms Hematologic/Lymphatic: Reports: No Symptoms Immunologic: Reports: No Symptoms ED EXAM, GENERAL - Physical Exam Exam: See Below Exam Limited By: No Limitations General Appearance: Alert, WD/WN, Mild Distress Head: Normocephalic Neck: Normal Inspection Respiratory/Chest: No Respiratory Distress, Normal Breath Sounds Cardiovascular: Normal Peripheral Pulses, Regular Rate, Rhythm, No Gallop, No Murmur, No Rub Peripheral Pulses: 2+: Radial (L), Radial (R), Dorsalis Pedis (L), Dorsalis Pedis (R) GI/Abdominal: Normal Bowel Sounds (Female) Exam: Deferred Rectal (Female) Exam: Deferred Neurological: Alert, Oriented, CN II-XII Intact Psychiatric: Normal Affect, Normal Mood Skin Exam: Warm, Dry, Intact Departure - Departure Disposition: Home, Self-Care 01 Clinical Impression: Atypical chest pain Referrals: Denisse Vogt PA [Primary Care Provider] - Forms: ED Department Discharge Additional Instructions: Recommend stress test with your primary care next 3 to 5days please follow-up for further evaluation, call or return to the emergency department with worsening of symptoms <OfficerSd - Last Filed: 03/19/20 18:25> ED ROS GENERAL - Review of Systems Review Of Systems: See Below (Agree with below) ED EXAM, GENERAL - Physical Exam Exam: See Below (Agree with below) Course - Vital Signs Last Recorded V/S: Last Vital Signs Temp 97.8 F 03/19/20 17:03 Pulse 80 03/19/20 17:47 Resp 25 H 03/19/20 17:47 BP 128/83 03/19/20 17:47 Pulse Ox 94 L 03/19/20 17:47 - Orders/Labs/Meds Orders: Active Orders 24 hr Category Date Time Status EKG Documentation Completion [RC] ASDIRECTED Care 03/19/20 16:47 Active Chest 2V [CR] Stat Exams 03/19/20 16:47 Taken Aspirin [Halfprin] Med 03/20/20 09:00 Active 324 mg PO DAILY EKG 12 Lead [EK] Routine Ther 03/19/20 16:47 Ordered Medication Orders Aspirin (Halfprin) 324 mg PO DAILY [facility] Last Admin: 03/19/20 17:15 Dose: 324 mg Documented by: [id number] Labs: Laboratory Tests 03/19/20 03/19/20 03/19/20 Range/Units 16:45 16:46 16:46 WBC 15.2 H (4.5-11.0) K/uL RBC 6.16 H (3.30-5.50) M/uL Hgb 14.4 (12.0-15.0) g/dL Hct 45.5 (36.0-48.0) % MCV 74 L (80-98) fL MCH 23 L (27-31) pg MCHC 32 (32-36) % Plt Count 499 H (150-400) K/uL Neut % (Auto) 83 H (36-66) % Lymph % (Auto) 10 L (24-44) % [place] % (Auto) 7 H (2-6) % Eos % (Auto) 0 L (2-4) % Baso % (Auto) 0 (0-1) % Sodium 139 L (140-148) mmol/L Potassium 3.6 (3.6-5.2) mmol/L Chloride 103 (100-108) mmol/L Carbon Dioxide 27 (21-32) mmol/L Anion Gap 12.6 (5.0-14.0) mmol/L BUN 29 H D (7-18) mg/dL Creatinine 1.0 (0.6-1.0) mg/dL Est Cr Clr Drug Dosing 46.73 mL/min Estimated GFR (MDRD) 58 L (>60) Glucose 113 H (74-106) mg/dL Calcium 9.5 (8.5-10.1) mg/dL Total Bilirubin 0.1 L (0.2-1.0) mg/dL AST 16 (15-37) U/L ALT 35 (12-78) U/L Alkaline Phosphatase 93 (46-116) U/L Troponin I < 0.017 (0.000-0.056) ng/mL Total Protein 7.6 (6.4-8.2) g/dL Albumin 3.6 (3.4-5.0) g/dL Globulin 4.0 H (2.3-3.5) g/dL Albumin/Globulin Ratio 0.9 L (1.2-2.2) Urine Color (YELLOW) Urine Appearance (CLEAR) Urine pH (5.0-8.0) Ur Specific [place] (1.008-1.030) Urine Protein (NEGATIVE) mg/dL Urine Glucose (UA) (NEGATIVE) mg/dL Urine Ketones (NEGATIVE) mg/dL Urine Occult Blood (NEGATIVE) Urine Nitrite (NEGATIVE) Urine Bilirubin (NEGATIVE) Urine Urobilinogen (0.2-1.0) EU/dL Ur Leukocyte Esterase (NEGATIVE) 03/19/20 Range/Units 17:02 WBC (4.5-11.0) K/uL RBC (3.30-5.50) M/uL Hgb (12.0-15.0) g/dL Hct (36.0-48.0) % MCV (80-98) fL MCH (27-31) pg MCHC (32-36) % Plt Count (150-400) K/uL Neut % (Auto) (36-66) % Lymph % (Auto) (24-44) % [place] % (Auto) (2-6) % Eos % (Auto) (2-4) % Baso % (Auto) (0-1) % Sodium (140-148) mmol/L Potassium (3.6-5.2) mmol/L Chloride (100-108) mmol/L Carbon Dioxide (21-32) mmol/L Anion Gap (5.0-14.0) mmol/L BUN (7-18) mg/dL Creatinine (0.6-1.0) mg/dL Est Cr Clr Drug Dosing mL/min Estimated GFR (MDRD) (>60) Glucose (74-106) mg/dL Calcium (8.5-10.1) mg/dL Total Bilirubin (0.2-1.0) mg/dL AST (15-37) U/L ALT (12-78) U/L Alkaline Phosphatase (46-116) U/L Troponin I (0.000-0.056) ng/mL Total Protein (6.4-8.2) g/dL Albumin (3.4-5.0) g/dL Globulin (2.3-3.5) g/dL Albumin/Globulin Ratio (1.2-2.2) Urine Color Yellow (YELLOW) Urine Appearance Clear (CLEAR) Urine pH 7.0 (5.0-8.0) Ur Specific [place] 1.025 (1.008-1.030) Urine Protein Negative (NEGATIVE) mg/dL Urine Glucose (UA) Negative (NEGATIVE) mg/dL Urine Ketones Negative (NEGATIVE) mg/dL Urine Occult Blood Negative (NEGATIVE) Urine Nitrite Negative (NEGATIVE) Urine Bilirubin Negative (NEGATIVE) Urine Urobilinogen 0.2 (0.2-1.0) EU/dL Ur Leukocyte Esterase Small H (NEGATIVE) Meds: Medications Generic Name Dose Route Start Last Admin Trade Name Freq PRN Reason Stop Dose Admin Aspirin 324 mg 03/20/20 09:00 03/19/20 17:15 Halfprin PO 324 mg DAILY KAMRYN Administration Discontinued Medications Generic Name Dose Route Start Last Admin Trade Name Mary Kya PRN Reason Stop Dose Admin Ketorolac Tromethamine 30 mg 03/19/20 17:52 03/19/20 17:58 Toradol IM 03/19/20 17:53 30 mg ONETIME ONE Administration Departure - Departure Time of Disposition: 18:24 Condition: Fair Sepsis Event Note (ED) - Focused Exam Vital Signs: Vital Signs Temp Pulse Resp BP Pulse Ox 03/19/20 17:47 80 25 H 128/83 94 L 03/19/20 17:10 106 H 141/96 H 95 03/19/20 17:03 97.8 F 80 16 132/81 100 03/19/20 16:38 97.8 F 80 16 132/81 100 - Assessment/Plan Plan: Assessment Acuity = acute Site and laterality = atypical chest pain Etiology = unknown Manifestations = none Location of injury = Home Lab values = WBC elevated 15.2 consistent leukocytosis, CMP unremarkable troponin is negative urinalysis unremarkable chest x-ray shows no acute process EKG demonstrates a sinus rhythm with no ST elevations or depressions Plan I did review lab work CT scan results with her plan that she is got a follow-up with her primary care for stress test in the next 3 to 5 days for further evaluation she also has a mass on her adrenal gland which needs further evaluation from prior CT Sd Garcia MD was personally available for consultation in the ED. I have reviewed the chart and agree with the documentation as recorded by the SPOILAGE WORKER Student, including the assessment, treatment plan and disposition. Sd Garcia MD personally saw and examined the patient. I have reviewed and agree with the SPOILAGE WORKER Student's findings. This note was dictated using [employer] voice recognition software please call with any questions on syntax or grammar.
[2020-03-19] MEDS ORDERED: Aspirin 81 MG Tab.Chew ONE (17:09)
[2020-03-19 17:48] VITALS: BP 128/83; PULSE 80
[2020-03-19] MEDS ORDERED: Ketorolac 30 MG/ML SDV IM ONE (17:52)
[2020-03-20] MEDS ORDERED: Aspirin 81 MG Tab.EC PO SCH (09:00)
--- NOTE | 2020-03-20 09:22 | CR ---
CHEST: 2 view CLINICAL HISTORY:Chest pain COMPARISON:2018 FINDINGS: The heart size, pulmonary vascularity and hilar structures are normal. No infiltrate effusion or pneumothorax is seen. There are atherosclerotic changes in the aorta. Patient to has the a moderate to dextroscoliosis. There are Whitfield rods in place unchanged since 2018 IMPRESSION: No acute cardiopulmonary process.
== END 2020-03-19 18:29 | disposition home or self-care (01) ==
LOC: JP.ED 16:13
DX: R07.89 Other chest pain (principal); E66.9 Obesity, unspecified; I10 Essential (primary) hypertension; J45.909 Unspecified asthma, uncomplicated; K21.9 Gastro-esophageal reflux disease without esophagitis; F32.9 Major depressive disorder, single episode, unspecified; M41.9 Scoliosis, unspecified; F41.9 Anxiety disorder, unspecified; Z79.899 Other long term (current) drug therapy; Z91.040 Latex allergy status; Z88.5 Allergy status to narcotic agent
CPT/HCPCS: 36415; 71046; 80053; 81003; 84484; 85025; 93005; 96372; 99285; A9270; J1885; 93010; 99283

== ENCOUNTER 2020-06-30 13:53 | Emergency (ER) | payer MEDICAID ==
[2020-06-30 14:11] VITALS: BP 148/92; PULSE 101
[2020-06-30] MEDS ORDERED: Acetaminophen/HYDROcodone 325-5 MG Tab PO ONE (15:05)
--- NOTE | 2020-06-30 15:08 | CR ---
Ribs 2V w Chest Lt CLINICAL HISTORY: Left rib pain FINDINGS: Study is limited due to patient body habitus. There is a small buckle deformity of the cortex of the anterior lateral left sixth rib suggesting prior fracture. Chronology is uncertain IMPRESSION: Previous fracture of the left anterior lateral sixth rib of uncertain chronology. Acute fracture is not excluded
--- NOTE | 2020-06-30 15:11 | EDM.PDOC ---
ED HPI GENERAL MEDICAL PROBLEM - General Chief Complaint: General Stated Complaint: BRUISED LT RIBS Time Seen by Provider: 06/30/20 14:50 Source of Information: Reports: Patient, Old Records, RN History Limitations: Reports: No Limitations - History of Present Illness INITIAL COMMENTS - FREE TEXT/NARRATIVE: 55 yo female here with L ant/lat rib pain. Took ibuprofen about 11:30 am today without relief. Injury yesterday leaning over a counter. No hx of prior rib fx's. 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 Left Trunk Pain Score (Numeric/FACES): 9 - Related Data Allergies Allergy/AdvReac Type Severity Reaction Status Date / Time latex Allergy Rash Verified 03/27/20 09:34 tramadol Allergy Seizure Verified 03/27/20 09:34 codeine AdvReac Unknown Hallucinati Verified 03/27/20 09:34 ons Home Meds: Home Meds Omeprazole 20 mg PO DAILY 03/21/13 [History] Folic Acid 1 mg PO DAILY 02/06/15 [History] ARIPiprazole [Abilify] 30 mg PO DAILY 05/31/15 [History] Amitriptyline [Elavil] 30 mg PO BEDTIME 05/31/15 [History] DULoxetine [Cymbalta] 120 mg PO DAILY 05/31/15 [History] Potassium Chloride 20 meq PO DAILY 04/30/16 [History] LORazepam 1 mg PO BID PRN 12/14/17 [History] Albuterol [Proventil Neb Soln] 3 ml IN Q6H PRN 03/27/20 [History] Calcium Carb/Vitamin D3/Vit K1 [Calcium + D Soft Chewable Tab] 1 each PO DAILY 03/27/20 [History] Cholecalciferol (Vitamin D3) [Vitamin D] 2,000 units PO DAILY 03/27/20 [History] Cyanocobalamin (Vitamin B-12) [Vitamin B-12] 5,000 mcg PO DAILY 03/27/20 [History] Fluticasone Propion/Salmeterol [Wixela 250-50 Inhub] 1 each IH BID 03/27/20 [History] Ibuprofen 800 mg PO TID 03/27/20 [History] Coram-3/DHA/Epa/Fish Oil [Coram 3 500 Softgel] 1 each PO DAILY 03/27/20 [History] Propylene Glycol/PEG 400/Pf [Systane 0.3-0.4% Eye Drops] 1 each OP BID 03/27/20 [History] Zonisamide 50 mg PO DAILY 03/27/20 [History] Acetaminophen/HYDROcodone [Chichester 325-5 MG] 1 - 2 tab PO Q6H PRN #14 tab 06/30/20 [Rx] Ferrous Sulfate [Iron] 325 mg PO DAILY 06/30/20 [History] Past Medical History HEENT History: Reports: Impaired Vision 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: Reports: Hypertension Respiratory History: Reports: Asthma 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 History: Reports: Cholelithiasis, GERD 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: Musculoskeletal History: Reports: Arthritis, Back Pain, Chronic Other Musculoskeletal History: scoliosis Neurological History: Reports: Seizure Other Neuro History: had seizure from tramadol last seizure January 04, 2018 Psychiatric History: Reports: Anxiety, Depression, Panic Attack, Psych Hospitalization(s), Suicide Attempt, Suicidal Ideation Endocrine/Metabolic History: Reports: Obesity/BMI 30+ Hematologic History: Reports: Anemia, Blood Transfusion(s), Iron Deficiency Immunologic History: Reports: AIDS - Infectious Disease History Infectious Disease History: Reports: Chicken Pox - Past Surgical History Head Surgeries/Procedures: Reports: None HEENT Surgical History: Reports: Adenoidectomy, Tonsillectomy Cardiovascular Surgical History: Reports: None Respiratory Surgical History: Reports: None GI Surgical History: Reports: Cholecystectomy, Colonoscopy Female Surgical History: Reports: Section, Hysterectomy Endocrine Surgical History: Reports: None Other Neurological Surgeries/Procedures: may 20 2015 lumbar spinal fussion and decompression Musculoskeletal Surgical History: Reports: Other (See Below) Other Musculoskeletal Surgeries/Procedures:: torito in spine with screws and plates Dermatological Surgical History: Reports: None Social & Family History - Tobacco Use Tobacco Use Status *Q: Never Tobacco User - Caffeine Use Caffeine Use: Reports: Coffee ED ROS GENERAL - Review of Systems Review Of Systems: See Below Constitutional: Reports: No Symptoms Cardiovascular: Reports: Chest Pain (L ant/lateral wall) Skin: Reports: No Symptoms Neurological: Reports: No Symptoms ED EXAM, GENERAL - Physical Exam Exam: See Below Exam Limited By: No Limitations General Appearance: Alert, WD/WN, No Apparent Distress, Obese Respiratory/Chest: No Respiratory Distress, Lungs Clear, Normal Breath Sounds, No Accessory Muscle Use. No: Chest Non-Tender, Respiratory Distress Cardiovascular: Regular Rate, Rhythm, No Edema Extremities: Normal Inspection Neurological: Alert, Oriented, CN II-XII Intact, Normal Cognition, No Motor/Sensory Deficits Psychiatric: Normal Affect, Normal Mood Skin Exam: Warm, Dry, Intact, Normal Color, No Rash Course - Vital Signs Last Recorded V/S: Last Vital Signs Temp 35.5 C L 06/30/20 14:10 Pulse 101 H 06/30/20 14:10 Resp 16 06/30/20 14:10 BP 148/92 H 06/30/20 14:10 Pulse Ox 95 06/30/20 14:10 - Orders/Labs/Meds Orders: Active Orders 24 hr Category Date Time Status Ribs 2V w Chest Lt [CR] Stat Exams 06/30/20 14:31 Taken Meds: Medications Discontinued Medications Generic Name Dose Route Start Last Admin Trade Name Freq PRN Reason Stop Dose Admin Hydrocodone Bitart/Acetaminophen 1 tab 06/30/20 15:05 Chichester 325-5 Mg PO 06/30/20 15:06 ONETIME ONE - Radiology Interpretation Free Text/Narrative:: rib [id number] L 6th rib fx Departure - Departure Time of Disposition: 15:10 Disposition: Home, Self-Care 01 Condition: Good Clinical Impression: Rib pain on left side - Discharge Information *PRESCRIPTION DRUG MONITORING PROGRAM REVIEWED*: Yes *COPY OF PRESCRIPTION DRUG MONITORING REPORT IN PATIENT MACHO: Yes Prescriptions: Acetaminophen/HYDROcodone [Chichester 325-5 MG] 1 - 2 tab PO Q6H PRN #14 tab PRN Reason: Pain Referrals: Denisse Vogt PA [Primary Care Provider] - Additional Instructions: Take ibuprofen 600 mg every 6 hrs with food and add either acetaminophen OR Chichester for added relief. Recheck with your provider later this week. Sepsis Event Note (ED) - Evaluation Sepsis Screening Result: No Definite Risk - Focused Exam Vital Signs: Vital Signs Temp Pulse Resp BP Pulse Ox 06/30/20 14:10 35.5 C L 101 H 16 148/92 H 95 - My Orders Last 24 Hours: My Active Orders 06/30/20 14:31 Ribs 2V w Chest Lt [CR] Stat - Assessment/Plan Last 24 Hours: My Active Orders 06/30/20 14:31 Ribs 2V w Chest Lt [CR] Stat
== END 2020-06-30 15:17 | disposition home or self-care (01) ==
LOC: JP.ED 13:53
DX: R07.81 Pleurodynia (principal); F41.9 Anxiety disorder, unspecified; F32.9 Major depressive disorder, single episode, unspecified; M19.90 Unspecified osteoarthritis, unspecified site; K21.9 Gastro-esophageal reflux disease without esophagitis; J45.909 Unspecified asthma, uncomplicated; I10 Essential (primary) hypertension; E66.8 Other obesity; Z79.899 Other long term (current) drug therapy; Z88.5 Allergy status to narcotic agent; Z91.040 Latex allergy status; Z88.6 Allergy status to analgesic agent; Z68.41 Body mass index [BMI] 40.0-44.9, adult
CPT/HCPCS: 71101; 99283; A9270

== ENCOUNTER 2020-10-08 12:09 | Emergency (ER) | payer OTHER, MEDICAID ==
[2020-10-08] MEDS ORDERED: Sodium Chloride 0.9% 10 ML Syringe FLUSH PRN (12:36)
[2020-10-08] MEDS ORDERED: Ketorolac 30 MG/ML SDV IVPUSH ONE (12:38)
[2020-10-08] MEDS ORDERED: LORazepam 2 MG/ML SDV IVPUSH ONE (12:38)
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
[2020-10-08] MEDS ORDERED: Sodium Chloride 0.9% 1,000 ML IV SCH (12:45)
[2020-10-08] MEDS ORDERED: Sodium Chloride 0.9% 10 ML Syringe FLUSH ONE (13:16)
[2020-10-08] MEDS ORDERED: Iopamidol 612 MG/ML 500 ML Multipack Bottle IV ONE (13:16)
[2020-10-08] MEDS ORDERED: Sodium Chloride 0.9% 75 ML IV SCH (13:30)
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
[2020-10-08 15:01] VITALS: BP 120/74; PULSE 80
== END 2020-10-08 15:02 | disposition home or self-care (01) ==
LOC: JP.ED 12:09
DX: S20.212A Contusion of left front wall of thorax, initial encounter (principal); I10 Essential (primary) hypertension; J45.909 Unspecified asthma, uncomplicated; M41.9 Scoliosis, unspecified; K21.9 Gastro-esophageal reflux disease without esophagitis; E66.9 Obesity, unspecified; Z68.41 Body mass index [BMI] 40.0-44.9, adult; Z88.5 Allergy status to narcotic agent; Z91.040 Latex allergy status; V89.2XXA Person injured in unspecified motor-vehicle accident, traffic, initial encounter
CPT/HCPCS: 71260; 96374; 96375; 99284; J1885; J2060; J7030; Q9967; 99283

== ENCOUNTER 2020-10-18 12:56 | Emergency (ER) | payer MEDICAID, OTHER ==
[2020-10-18 13:19] VITALS: BP 118/86; PULSE 78
[2020-10-18] MEDS ORDERED: Ketorolac 30 MG/ML SDV IM ONE (13:25)
[2020-10-18] MEDS ORDERED: Ondansetron 4 MG Tab.DIS PO ONE (13:25)
--- NOTE | 2020-10-18 13:28 | EDM.PDOC ---
ED HPI GENERAL MEDICAL PROBLEM - General Chief Complaint: Abdominal Pain Stated Complaint: STOMACH ISSUES Time Seen by Provider: 10/18/20 13:22 Source of Information: Reports: Patient, RN Notes Reviewed History Limitations: Reports: No Limitations - History of Present Illness INITIAL COMMENTS - FREE TEXT/NARRATIVE: 55-year-old female presents to the emergency department day complaint of abdominal pain, she states abdominal pain has developed over the last couple of days it has gotten progressively worse she is passing gas she states she is having normal bowel movements is predominantly in the right upper quadrant she does have a history of cholecystectomy no fever no shortness of breath no chest pain - Related Data Allergies Allergy/AdvReac Type Severity Reaction Status Date / Time latex Allergy Rash Verified 10/18/20 13:14 tramadol Allergy Seizure Verified 10/18/20 13:14 codeine AdvReac Unknown Hallucinati Verified 10/18/20 13:14 ons Home Meds: Home Meds Omeprazole 20 mg PO DAILY 03/21/13 [History] Folic Acid 1 mg PO DAILY 02/06/15 [History] ARIPiprazole [Abilify] 30 mg PO DAILY 05/31/15 [History] DULoxetine [Cymbalta] 120 mg PO DAILY 05/31/15 [History] Potassium Chloride 20 meq PO DAILY 04/30/16 [History] LORazepam 1 mg PO BID PRN 12/14/17 [History] Calcium Carb/Vitamin D3/Vit K1 [Calcium + D Soft Chewable Tab] 1 each PO DAILY 03/27/20 [History] Cyanocobalamin (Vitamin B-12) [Vitamin B-12] 5,000 mcg PO DAILY 03/27/20 [History] Fluticasone Propion/Salmeterol [Wixela 250-50 Inhub] 1 each IH BID 03/27/20 [History] Ibuprofen 800 mg PO TID 03/27/20 [History] Wishram-3/DHA/Epa/Fish Oil [Wishram 3 500 Softgel] 1 each PO DAILY 03/27/20 [History] Propylene Glycol/PEG 400/Pf [Systane 0.3-0.4% Eye Drops] 1 each OP BID 03/27/20 [History] Zonisamide 50 mg PO DAILY 03/27/20 [History] Ferrous Sulfate [Iron] 325 mg PO DAILY 06/30/20 [History] Amitriptyline [Elavil] 20 mg PO BEDTIME 10/18/20 [History] Lisinopril/Hydrochlorothiazide [Lisinopril-Hctz 10-12.5 mg Tab] 1 tab PO DAILY 10/18/20 [History] metFORMIN [Glucophage] 500 mg PO BIDMEALS 10/18/20 [History] Past Medical History HEENT History: Reports: Impaired Vision 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: Reports: Hypertension Respiratory History: Reports: Asthma 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 History: Reports: Cholelithiasis, GERD 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 [employer] 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: Reports: Musculoskeletal History: Reports: Arthritis, Back Pain, Chronic Other Musculoskeletal History: scoliosis spine fusion in the lower back Neurological History: Reports: Seizure Other Neuro History: had seizure from tramadol last seizure January 04, 2018 Psychiatric History: Reports: Anxiety, Depression, Panic Attack, Psych Hospitalization(s), Suicide Attempt, Suicidal Ideation Endocrine/Metabolic History: Reports: Obesity/BMI 30+ Hematologic History: Reports: Anemia, Blood Transfusion(s), Iron Deficiency Immunologic History: Reports: AIDS - Infectious Disease History Infectious Disease History: Reports: Chicken Pox - Past Surgical History Head Surgeries/Procedures: Reports: None HEENT Surgical History: Reports: Adenoidectomy, Tonsillectomy Cardiovascular Surgical History: Reports: None Respiratory Surgical History: Reports: None GI Surgical History: Reports: Cholecystectomy, Colonoscopy Female Surgical History: Reports: Section, Hysterectomy Endocrine Surgical History: Reports: None Other Neurological Surgeries/Procedures: may 20 2015 lumbar spinal fussion and decompression Musculoskeletal Surgical History: Reports: Other (See Below) Other Musculoskeletal Surgeries/Procedures:: torito in spine with screws and plates Dermatological Surgical History: Reports: None Social & Family History - Caffeine Use Caffeine Use: Reports: Coffee ED ROS GENERAL - Review of Systems Review Of Systems: See Below Constitutional: Reports: No Symptoms HEENT: Reports: No Symptoms Respiratory: Reports: No Symptoms Cardiovascular: Reports: No Symptoms GI/Abdominal: Reports: Abdominal Pain, Flatus, Nausea. Denies: Constipation, Diarrhea, Vomiting : Reports: No Symptoms ED EXAM, GI/ABD - Physical Exam Exam: See Below Exam Limited By: No Limitations General Appearance: Alert, WD/WN, No Apparent Distress Respiratory/Chest: No Respiratory Distress, Lungs Clear, Normal Breath Sounds, No Accessory Muscle Use, Chest Non-Tender Cardiovascular: Regular Rate, Rhythm, No Murmur GI/Abdominal Exam: Soft, Non-Tender, No Distention, No Abnormal Bruit, No Mass, Abnormal Bowel Sounds (Decreased), Other (Difficult due to obesity) Course - Vital Signs Last Recorded V/S: Last Vital Signs Temp 97.5 F 10/18/20 13:20 Pulse 78 10/18/20 13:20 Resp 18 10/18/20 13:20 BP 118/86 10/18/20 13:20 Pulse Ox 98 10/18/20 13:20 - Orders/Labs/Meds Orders: Active Orders 24 hr Category Date Time Status Abdomen 1V Upright [CR] Urgent Exams 10/18/20 13:25 Ordered UA W/MICROSCOPIC [URIN] Urgent Lab 10/18/20 13:25 Ordered Labs: Laboratory Tests 10/18/20 10/18/20 10/18/20 Range/Units 13:34 13:34 13:34 WBC 17.0 H (4.5-11.0) K/uL RBC 5.71 H (3.30-5.50) M/uL Hgb 13.6 (12.0-15.0) g/dL Hct 41.5 (36.0-48.0) % MCV 73 L (80-98) fL MCH 24 L (27-31) pg MCHC 33 (32-36) % Plt Count 537 H (150-400) K/uL Neut % (Auto) 77 H (36-66) % Lymph % (Auto) 11 L (24-44) % Hinds % (Auto) 8 H (2-6) % Eos % (Auto) 3 (2-4) % Baso % (Auto) 0 (0-1) % Sodium 145 (140-148) mmol/L Potassium 3.5 L (3.6-5.2) mmol/L Chloride 105 (100-108) mmol/L Carbon Dioxide 26 (21-32) mmol/L Anion Gap 17.5 H (5.0-14.0) mmol/L BUN 25 H (7-18) mg/dL Creatinine 1.1 H (0.6-1.0) mg/dL Est Cr Clr Drug Dosing 42.48 mL/min Estimated GFR (MDRD) 52 L (>60) Glucose 105 (74-106) mg/dL Lactic Acid 0.7 (0.4-2.0) mmol/L Calcium 9.5 (8.5-10.1) mg/dL Total Bilirubin 0.3 D (0.2-1.0) mg/dL AST 12 L (15-37) U/L ALT 31 (12-78) U/L Alkaline Phosphatase 95 (46-116) U/L Troponin I < 0.017 (0.000-0.056) ng/mL Total Protein 7.1 (6.4-8.2) g/dL Albumin 3.4 (3.4-5.0) g/dL Globulin 3.7 H (2.3-3.5) g/dL Albumin/Globulin Ratio 0.9 L (1.2-2.2) Lipase 88 (73-393) U/L Meds: Medications Discontinued Medications Generic Name Dose Route Start Last Admin Trade Name Freq PRN Reason Stop Dose Admin Ketorolac Tromethamine 30 mg 10/18/20 13:25 10/18/20 13:43 Ketorolac 30 Mg/Ml Sdv IM 10/18/20 13:26 30 mg ONETIME ONE Administration Ondansetron HCl 4 mg 10/18/20 13:25 10/18/20 13:43 Ondansetron 4 Mg Tab.Dis PO 10/18/20 13:26 4 mg ONETIME ONE Administration Departure - Departure Time of Disposition: 14:18 Disposition: Home, Self-Care 01 Condition: Fair Clinical Impression: Functional constipation - Discharge Information Instructions: Constipation, Adult, [id number] Referrals: Denisse Vogt PA [Primary Care Provider] - Forms: ED Department Discharge Additional Instructions: Try the colonoscopy prep with MiraLAX, please followup with your primary care provider in 3-5 days if not better, please call return to the emergency department with worsening of symptoms. Sepsis Event Note (ED) - Evaluation Sepsis Screening Result: No Definite Risk - Focused Exam Vital Signs: Vital Signs Temp Pulse Resp BP Pulse Ox 10/18/20 13:20 97.5 F 78 18 118/86 98 10/18/20 13:18 97.5 F 78 18 118/86 98 - My Orders Last 24 Hours: My Active Orders 10/18/20 13:25 Abdomen 1V Upright [CR] Urgent UA W/MICROSCOPIC [URIN] Urgent - Assessment/Plan Last 24 Hours: My Active Orders 10/18/20 13:25 Abdomen 1V Upright [CR] Urgent UA W/MICROSCOPIC [URIN] Urgent Plan: Assessment Acuity = acute Site and laterality = functional constipation Etiology = slow transit time Manifestations = none Location of injury = Home Lab values = WBC elevated 17.0 consistent leukocytosis platelets elevated 537 co nsistent with thrombocytosis creatinine elevated 1.1 consistent chronic renal failure stage G3 a troponin was negative abdominal film does show moderate amount of stool right side ascending colon official read radiologist pending Plan I did discuss with her lab results and x-ray results I offered further image studies such as a CAT scan but agreed that because she had a CAT scan last week may be to reduce the amount of radiation she would try treatment for constipation first therefore when I do the colonoscopy prep with MiraLAX follow- up primary care 3 to 5 days if not better or return to the emergency department with worsening of symptoms This note was dictated using [employer] voice recognition software please call with any questions on syntax or grammar.
--- NOTE | 2020-10-20 11:11 | CR ---
Abdomen 1V Upright CLINICAL HISTORY: Abdominal pain FINDINGS: No free air is identified. Small intestinal gas pattern is nonacute. There has been previous cholecystectomy. There is moderate fecal retention IMPRESSION: Nonacute intestinal gas pattern Moderate fecal retention
== END 2020-10-18 14:38 | disposition home or self-care (01) ==
LOC: JP.ED 12:56
DX: K59.04 Chronic idiopathic constipation (principal); E66.9 Obesity, unspecified; K21.9 Gastro-esophageal reflux disease without esophagitis; I10 Essential (primary) hypertension; Z91.040 Latex allergy status; Z88.5 Allergy status to narcotic agent; Z88.6 Allergy status to analgesic agent; Z90.49 Acquired absence of other specified parts of digestive tract; Z68.39 Body mass index [BMI] 39.0-39.9, adult; Z79.899 Other long term (current) drug therapy
CPT/HCPCS: 36415; 74018; 80053; 83605; 83690; 84484; 85025; 96372; 99284; A9270; J1885

== ENCOUNTER 2022-07-24 10:09 | Emergency (ER) | payer MEDICAID ==
[2022-07-24 10:36] VITALS: BP 125/76; PULSE 110
[2022-07-24] MEDS ORDERED: Lidocaine 1% with EPINEPHrine 1:100,000 50 ML MDV INFILT ONE (10:41)
== END 2022-07-24 11:30 | disposition home or self-care (01) ==
LOC: JP.ED 10:09
DX: N61.1 Abscess of the breast and nipple (principal); I10 Essential (primary) hypertension; J45.909 Unspecified asthma, uncomplicated; K21.9 Gastro-esophageal reflux disease without esophagitis; M19.90 Unspecified osteoarthritis, unspecified site; D64.9 Anemia, unspecified; E66.9 Obesity, unspecified; Z91.040 Latex allergy status; Z88.5 Allergy status to narcotic agent; Z79.899 Other long term (current) drug therapy
CPT/HCPCS: 10060; 87070; 87205; 99281; 99283-25

== ENCOUNTER 2022-09-21 08:56 | Day surgery (SDC) | payer MEDICAID ==
[~2022-09-21 08:56] MED LIST: Midazolam 1 MG/ML 2 ML SDV ONE; Propofol 200 MG/20 ML SDV ONE; fentaNYL 50 MCG/ML SDV ONE
[2022-09-21] MEDS ORDERED: Lactated Ringers 1,000 ML IV SCH (09:30)
[2022-09-21 12:52] VITALS: BP 130/73; PULSE 101
== END 2022-09-21 12:54 | disposition home or self-care (01) ==
LOC: JP.SDS 08:56
PROVIDERS: ATTEND Family Medicine
DX: K57.30 Diverticulosis of large intestine without perforation or abscess without bleeding (principal); K64.8 Other hemorrhoids; I10 Essential (primary) hypertension; G40.909 Epilepsy, unspecified, not intractable, without status epilepticus; Z91.040 Latex allergy status; Z88.5 Allergy status to narcotic agent; Z79.899 Other long term (current) drug therapy
CPT/HCPCS: 45378; J2250; J2704; J3010; J7120

== ENCOUNTER 2024-05-10 16:27 | Emergency (ER) | payer MEDICAID ==
[2024-05-10 16:50] VITALS: BP 169/113; PULSE 96
[2024-05-10] MEDS: Bacitracin Oint 1 GM U/D Packet TOP ONE (17:39)
== END 2024-05-10 17:45 | disposition home or self-care (01) ==
LOC: JP.ED 16:27
DX: Z47.89 Encounter for other orthopedic aftercare (principal); I10 Essential (primary) hypertension; J45.909 Unspecified asthma, uncomplicated; K21.9 Gastro-esophageal reflux disease without esophagitis; E66.9 Obesity, unspecified; Z68.38 Body mass index [BMI] 38.0-38.9, adult; Z90.49 Acquired absence of other specified parts of digestive tract; Z90.710 Acquired absence of both cervix and uterus; Z91.040 Latex allergy status; Z79.51 Long term (current) use of inhaled steroids; Z79.84 Long term (current) use of oral hypoglycemic drugs; Z79.890 Hormone replacement therapy; Z79.899 Other long term (current) drug therapy
CPT/HCPCS: 99282